=== PATIENT | female | born 1975 | race Two or more races ===

== ENCOUNTER 2018-08-14 21:12 | Emergency (ER) | payer SELFPAY ==
[~2018-08-14] VITALS: Ht 152.4 cm; Wt 73.0 kg
[2018-08-14] MEDS ORDERED: IPRATROPIUM BROMIDE (0.02%) 0.5MG/2.5ML NEB HHN STA (21:29)
[2018-08-14] MEDS ORDERED: PREDNISONE 20MG TABLET PO STA (21:29)
[2018-08-14] MEDS ORDERED: ALBUTEROL (0.083%) 2.5MG/3ML NEB HHN STA (21:29)
[2018-08-14] MEDS ORDERED: SODIUM CHLORIDE 0.9% 1,000 ML IV ONE (23:03)
[2018-08-14] MEDS ORDERED: MAGNESIUM 2 G PREMIX 50 ML IV STA (23:03)
[2018-08-15 00:53] VITALS: BP 102/43
== END 2018-08-15 01:00 | disposition home or self-care (01) ==
LOC: ER 21:12
DX: J45.901 Unspecified asthma with (acute) exacerbation (principal)
CPT/HCPCS: 94644; 96365; 99285; J3475; J7030; J7512; J7611